=== PATIENT | male | born 1955 | race Caucasian/White ===

== ENCOUNTER 2016-04-24 21:18 | Inpatient (IN) | payer BC ==
[~2016-04-24] VITALS: Ht 180.3 cm; Wt 94.2 kg
--- NOTE | 2016-04-24 23:25 | ED ORDER SUMMARY ---
..... Patient: VIRGIL DAVILA OrderSheet [facility] VisitID: [id number] [place] [address] 61y, M Registration Date/Time: 04/24/2016 ORDER SHEET Weight: 88.4 kg (stated) Allergies: No Known Drug Allergy GENERAL ORDERS: CBC w Diff Urgent (:04/24/2016 Jodi CRAMER) (Ack 21:32 AALIYAHurca ER Tech1) (22:12 HOShaughnessy R.N.) CMP Urgent (:04/24/2016 Jodi CRAMER) (Ack 21:32 AALIYAHurcquyen ER Tech1) (22:12 HOShaughnessy R.N.) UA-Culture if indicated Urgent (:04/24/2016 Jodi CRAMER) (Ack 21:32 Robert ER Tech1) (22:12 HOShaughnessy R.N.) Amylase Urgent (04/24/2016 Jodi CRAMER) (Ack 21:32 AALIYAHurcquyen ER Tech1) (22:12 HOShaughnessy R.N.) Lipase Urgent (:04/24/2016 Jodi CRAMER) (Ack 21:32 Robert ER Tech1) (22:12 HOShaughnessy R.N.) US Abdomen Limited (No) Urgent (22:06 04/24/2016 Jodi CRAMER) (Ack 22:08 IJurca ER Tech1) (23:12 HOShaughnessy R.N.) Blood Culture (No) (N/A) Urgent (22:22 04/24/2016 Jodi CRAMER) (Ack 22:27 IJurca ER Tech1) (Sent 23:11 IJurca ER Tech1) (23:12 HOShaughnessy R.N.) Lactate, Serum Urgent (22:23 04/24/2016 Jodi CRAMER) (Ack 22:27 AALIYAHurcquyen ER Tech1) (Sent 23:11 IJurca ER Tech1) (23:12 HOShaughnessy R.N.) MEDICATION ORDERS: IV FLUIDS: IV NS : initial bolus 500 mL (1000 mL/hr), then 125 mL/hr for 4h (NOW); Urgent (21:31 04/24/2016 Jodi CRAMER) (21:38 HOShaughgino R.N.) (Cancelled: Other22:34 Jodi CRAMER) Zofran IV 4 mg (NOW) (21:31 04/24/2016 Jodi CRAMER) (21:38 HOSvamshi R.N.) Dilaudid IV 0.5 mg (PRN q 15minutes x2 for pain control ) (22:13 04/24/2016 HOSvamshi R.N. verbal order read back to Jodi CRAMER) (22:13 Jim RPaolaN.) IV NS : initial bolus 1000 mL (1000 mL/hr), then 1000 mL/hr for X3 (NOW); Urgent (22:35 04/24/2016 Jodi CRAMER) (23:12 HOShaughgino R.N.) Zosyn IV 3.375 gm/50mL (NOW) (22:36 04/24/2016 Jodi CRAMER) (23:12 HOShaughgino R.N.) Dilaudid IV 0.5 mg (HIGH ALERT MEDICATION, NOW) (23:29 04/24/2016 Jodi CRAMER) (23:41 HOSvamshi R.N.) ORDER SHEET NOTES: [Electronically signed by Estrada Hope R.N. (00:57 04/25/2016)] [Electronically signed by Jadon Carr MD (01:19 04/25/2016)] [Electronically locked/signed by Estrada Hope R.N. (00:57 04/25/2016)]
--- NOTE | 2016-04-24 23:25 | ED NURSING NOTES ---
Clinical Report - Nurses [facility] [place] [address] 04/24/2016 21:20 Patient: VIRGIL DAVILA TRIAGE Triage time 2129 PM. Acuity: LEVEL 3. Chief Complaint: ABDOMINAL PAIN, NAUSEA and VOMITING. Alert. No acute distress. ( Blood Sugar: 169). --21:32 Etsrada Hope R.N. 21:29 04/24/16. BP: 169/98 taken on the left arm, via an automated monitor, while lying. HR: 51. RR: 16. O2 saturation: 93%. Temp: 98.7 F (oral). Pain level now: 12/03. --21:32 Estrada Hope R.N. Weight: 88.4 kg stated. Height/Length: 71 inches Per Patient. BMI: 27.2. --21:31 Estrada Hope R.N. Medications Omeprazole Oral. --21:30 Estrada Hope R.N. Lisinopril Oral. --21:30 Estrada Hope R.N. Allergies No Known Drug Allergy. --21:30 Estrada Hope R.N. History Arrived by private vehicle. Historian: patient. Accompanied by family. This started today. Onset. (about 1 PM). Last oral intake by patient was liquid 1 hour ago. Treatment COMMUNICATIONS ADVISOR: None. PAST MEDICAL HX: Peptic ulcer disease. SOCIAL HX: Never smoker. Alcohol use. (no). History of drug use. (no). FALL RISK ASSESSMENT: Fall risk assessment completed. No fall risk identified. NUTRITIONAL RISK ASSESSMENT: The nutritional risk assessment revealed no deficiencies. FUNCTIONAL ASSESSMENT: Functional assessment: no impairments noted. LEARNING NEEDS ASSESSMENT: The learning needs assessment revealed no barriers. SKIN INTEGRITY ASSESSMENT: Skin integrity risk assessment completed. No skin integrity risk identified. --21:32 Estrada Hope R.N. PROBLEMS: Peptic Ulcer Disease. Hypertension. --21:31 Estrada Hope R.N. ADDITIONAL SURGERIES: Knee Surgery. --21:31 Estrada Hope R.N. Interventions ID band on patient. To treatment room. --21:32 Estrada Hope R.N. PHYSICAL ASSESSMENT Ambulatory to room. GENERAL / NEURO / PSYCH: Alert. Oriented X 4. Appears in no acute distress. HEENT: Mucous membranes are pink. RESPIRATORY: Respirations not labored. Breath sounds within normal limits. CVS: Normal sinus rhythm noted. Capillary refill less than 2 seconds. GI / : The patient has had nausea. Emesis noted. Abdominal tenderness in the epigastric area. Last BM was 12pm. SKIN: Skin is warm and dry. --21:33 Estrada Hope R.N. NURSING PROGRESS NOTES Point of care testing: performed by nurse. Glucose: 169. Result shown to the ED physician. --21:34 Estrada Hope R.N. Reassurance given. Call light placed in reach. Side rails up x 2. --21:34 Estrada Hope R.N. 21:35 04/24/2016 Site #1 started via IV in the right antecubital space with an 20g angiocath, with aseptic technique and good blood return; one attempt. Blood drawn: rainbow set. Labeled in the presence of the patient and sent to the lab. Saline lock flushed with 10 mL saline. --21:35 Genevieve Padron R.N. 21:38 04/24/2016 Started IV Fluids IV NS (Saline); bolus of 500 mL wide open via site #1 via IV pump. Allergies verified and confirmed 5 rights. IV patency established. IV site checked: no pain, redness, or swelling. IV flushed thoroughly pre- and post-medication administration. --21:38 Estrada Hope R.N. 21:38 04/24/2016 Zofran (Ondansetron HCl) IVP 4 mg given over 2 minute(s) via site #1. Allergies verified and confirmed 5 rights. IV patency established. IV site checked: no pain, redness, or swelling. IV flushed thoroughly pre- and post-medication administration. IVP given by RN. --21:38 Estrada Hope R.N. 22:13 04/24/2016 Dilaudid (HYDROmorphone HCl PF) IVP 0.5 mg given over 2 minute(s) via site #1. Allergies verified, confirmed 5 rights and sedative warning given to the patient. IV patency established. IV site checked: no pain, redness, or swelling. IV flushed thoroughly pre- and post-medication administration. IVP given by RN. --22:13 Estrada Hope R.N. 22:36 04/24/2016 Dilaudid IVP Response: pain is improving. Symptoms have improved the patient feels better. --22:36 Estrada Hope R.N. 22:37 04/24/2016 Dilaudid (HYDROmorphone HCl PF) IVP 0.5 mg given over 2 minute(s) via site #1. Allergies verified, confirmed 5 rights and sedative warning given to the patient. IV patency established. IV site checked: no pain, redness, or swelling. IV flushed thoroughly pre- and post-medication administration. IVP given by RN. --22:37 Estrada Hope R.N. 23:11 04/24/2016 Site #2 started via IV in the left forearm with an 18g angiocath; one attempt. Blood drawn: cultures x2. Labeled in the presence of the patient and sent to the lab. Saline lock flushed with 10 mL saline. --23:11 Estrada Hope R.N. 23:11 04/24/2016 Started IV Fluids IV NS (Saline); bolus of 1000 mL wide open via site #2. Allergies verified and confirmed 5 rights. IV patency established. IV site checked: no pain, redness, or swelling. IV flushed thoroughly pre- and post-medication administration. --23:12 Estrada Hope R.N. 23:12 04/24/2016 Started 3.375 gm of Zosyn (Piperacillin Sod-Tazobactam So) IVPB in bag #1 50 mL; at 100 mL/hr over 30 minute(s) via site #2 via IV pump. Allergies verified and confirmed 5 rights. IV patency established. IV site checked: no pain, redness, or swelling. IV flushed thoroughly pre- and post-medication administration. --23:12 Estrada Hope R.N. ( Ultrasound at the bedside.). --23:13 Estrada Hope R.N. 23:40 04/24/2016 Dilaudid (HYDROmorphone HCl PF) IVP 0.5 mg given over 2 minute(s) via site #2. Allergies verified, confirmed 5 rights and sedative warning given to the patient. IV patency established. IV site checked: no pain, redness, or swelling. IV flushed thoroughly pre- and post-medication administration. IVP given by RN. --23:41 Estrada Hope R.N. 23:42 04/24/16. BP: 154/90. HR: 58. RR: 16. O2 saturation: 94%. Temp: 99.4 F (oral). Pain level now: 08/03. --23:43 Estrada Hope R.N. late entry -23:42. Call light placed in reach. --23:43 Estrada Hope R.N. 00:33 04/25/2016 Dilaudid IVP Response: symptoms are the same. The patient feels the same. --00:33 Estrada Hope R.N. 00:34 04/25/2016 Started bag #1 1000 mL IV Fluids IV NS (Saline); bolus of 1000 mL wide open via site #2. Allergies verified and confirmed 5 rights. IV patency established. IV site checked: no pain, redness, or swelling. IV flushed thoroughly pre- and post-medication administration. --00:34 Estrada Hope R.N. 00:34 04/25/2016 Zosyn IVPB Discontinued: bag #1 infused. Total amount infused: 50 mL. IV patency established. IV site checked: no pain, redness, or swelling. IV flushed thoroughly. --00:34 Estrada Hope R.N. 00:34 04/25/2016 IV Fluids IV NS Discontinued: bag #2 infused. Total amount infused: 1000 mL. IV patency established. IV site checked: no pain, redness, or swelling. IV flushed thoroughly. --00:34 Estrada Hope R.N. 00:35 04/25/2016 IV Fluids IV NS Discontinued: bag #3 infused. Total amount infused: 1000 mL. IV patency established. IV site checked: no pain, redness, or swelling. IV flushed thoroughly. --00:35 Estrada Hope R.N. DISPOSITION / DISCHARGE The goals identified in the patient's plan of care were met. Report was given to a nurse via a phone call. Report included patient's care, treatment, medications, reviewed medication reconcilliation, and condition (including any recent changes or anticipated changes). All questions were answered. Report was acknowledged and care was transferred. --00:33 Estrada Hope R.N. 00:32 04/25/16. BP: 156/84. HR: 54. RR: 16. O2 saturation: 90%. Temp: 99.5 F. Pain level now: 08/03. --00:33 Estrada Hope R.N. Departure time: 0045 AM. --00:57 Estrada Hope R.N. Transported via stretcher by nurse with IV. --00:57 Estrada Hope R.N. Locked/Released at 04/25/2016 0:57 by Estrada Hope R.N.
--- NOTE | 2016-04-24 23:25 | ED CLINICAL REPORT ---
Clinical Report - Physicians/Mid Levels [facility] [address] [place] [address] 04/24/2016 21:20 Patient: VIRGIL DAVILA Time Seen: 21:29. Arrived- By private vehicle. Historian- patient. HISTORY OF PRESENT ILLNESS Chief Complaint: ABDOMINAL PAIN. It is described as sharp and stabbing and it is described as located in the epigastric area and in the upper abdomen and radiating to the upper back. At its maximum, severity described as severe. When seen in the E.D., severity described as severe. Modifying factors- worsened by cough, deep breaths and food. Relieved by antacids. This started today and is still present. It was abrupt in onset and has been constant. The patient has had nausea and loss of appetite. He has had vomiting. The vomiting has occurred numerous times. No blood-tinged emesis, coffee-grounds emesis or frankly bloody emesis. No diarrhea. The patient has had recent travel- ([place]). Similar symptoms previously: Many times. REVIEW OF SYSTEMS The patient has had a subjective fever, chills and constipation and experienced sweats. No calf pain, chest pain, cough, difficulty breathing or pedal edema. No palpitations, black stools, bloody stools or urinary problems. All systems otherwise negative, except as recorded above. PAST HISTORY PCP - Oneil Llanos - [facility] [place]. Problems: Peptic Ulcer Disease. Hypertension. Additional Surgeries: Knee Surgery. Medications: Lisinopril Oral. Omeprazole Oral. Allergies: No Known Drug Allergy. SOCIAL HISTORY Former smoker, end date 1996. Occasional alcohol use. He lives with spouse. Has good social support. FAMILY HISTORY Heart disease in first-degree relative (mother); aortic aneurysm in first-degree relative (father). ADDITIONAL NOTES The nursing notes have been reviewed. PHYSICAL EXAM Vital Signs: 04/24/2016 21:29 BP: 169/98. HR: 51. RR: 16. O2 saturation: 93%. Temp: 98.7 F. Pain level now: 12/03. Have been reviewed. Appearance: Alert. Appears to be in pain. Eyes: Pupils equal, round and reactive to light. ENT: Pharynx normal. Neck: Normal inspection. Neck supple. CVS: Normal heart rate and rhythm. Heart sounds normal. Respiratory: No respiratory distress. Breath sounds normal. Abdomen: Soft. Moderate tenderness in the upper abdomen. Bowel sounds normal. No organomegaly. No mass. Back: Normal inspection. No CVA tenderness. Skin: Skin warm and dry. Normal skin color. Normal skin turgor. Extremities: Extremities exhibit normal ROM. No calf tenderness. No lower extremity edema. LABS, X-RAYS, AND EKG Abdominal Sonogram: Multiple gallstones are present. Moderate gallbladder wall thickening is present (6 mm with hyperemia). Pericholecystic fluid is present. The common duct is dilated (7mm). No common duct stones. The study was independently viewed by me. Laboratory Tests: UA-Culture if indicated: (GOMEZ: 04/24/2016 22:10) ( [facility] [place] 04/24/2016 22:28) Final results Test Result Flag Units (Reference) URINE COLOR YELLOW URINE APPEARANCE CLEAR URINE GLUCOSE NEGATIVE (NEGATIVE) URINE BILIRUBIN NEGATIVE (NEGATIVE) URINE KETONE NEGATIVE (NEGATIVE) URINE SPECIFIC GRAVITY 1.025 (1.010-1.030) URINE PH 5.5 (5.0-8.0) URINE PROTEIN NEGATIVE (NEGATIVE) URINE UROBILINOGEN 0.2 EU/dL (0.2-1.0) URINE NITRITE NEGATIVE (NEGATIVE) URINE BLOOD NEGATIVE (NEGATIVE) URINE LEUK ESTERASE NEGATIVE (NEGATIVE) URINE RBC 0-1 rbc/hpf (0-1) URINE WBC NONE SEEN wbc/hpf (0-1) URINE EPITHELIAL CELLS NONE SEEN EPI/hpf (0-5) URINE BACTERIA NONE SEEN (NONE SEEN) URINE COMMENT CULT NOT INDICATED 1+ MUCUSURINE CULTURES ARE SET-UP BASED ON THE FOLLOWING CRITERIA:POSITIVE NITRITEPOSITIVE LEUKOCYTE ESTERASEGREATER THAN 10 WHITE BLOOD CELLSMODERATE (2+) OR GREATER BACTERIA CBC w Diff: (GOMEZ: 04/24/2016 21:33) ( [facility] 04/24/2016 21:42) Final results Test Result Flag Units (Reference) WHITE BLOOD COUNT 17.6 H K/uL (4.5-11.5) RED BLOOD COUNT 5.11 M/uL (4.50-5.90) HEMOGLOBIN 15.2 gm/dL (13.5-17.5) HEMATOCRIT 45.8 % (41.0-53.0) MEAN CELL VOLUME 90 fL (80-100) MEAN CORPUSCULAR HGB 30 pg (26-34) MEAN CORPUSCULAR HGB CONC 33 g/dL (31-37) RED CELL DISTRIBUTION WIDTH 13.3 % (11.6-14.8) PLATELET COUNT 183 K/uL (150-400) NEUTROPHIL % 92.6 H % (50-75) LYMPH % 4.5 L % (25-40) MONO % 2.9 L % (3-14) EOSINOPHIL % 0 % (0-4) BASOPHIL % 0 % (0-2) Lactate, Serum: (GOMEZ: 04/24/2016 10:46) ( [facility] 04/24/2016 23:14) Final results Test Result Flag Units (Reference) LACTIC ACID 1.2 mmol/L (0.4-2.0) CMP: (GOMEZ: 04/24/2016 21:33) ( [facility] 04/24/2016 22:12) Final results Test Result Flag Units (Reference) GLUCOSE 171 H mg/dL (70-110) BUN 22 H mg/dL (7-18) CREATININE 1.5 H mg/dL (0.6-1.3) Estimated GFR 50.24 mL/min Estimated GFR- >60 mL/min Note: Persistent reduction over 3 months in eGFR<60 mL/min/1.73 m2 defines CKD. Patients with eGFR values>=60 mL/min/1.73 m2 may also have CKD if evidence ofpersistent proteinuria. Additional information may be foundat www.kidney.org. SODIUM 136 mmol/L (136-145) POTASSIUM 3.6 mmol/L (3.5-5.1) CHLORIDE 99 mmol/L (98-107) CARBON DIOXIDE 28 mmol/L (21-32) CALCIUM 9.1 mg/dL (8.5-10.1) TOTAL PROTEIN 7.7 g/dL (6.4-8.2) ALBUMIN 4.3 g/dL (3.3-5.0) BILIRUBIN, TOTAL 1.6 H mg/dL (0.0-1.0) ALKALINE PHOSPHATASE 344 H U/L (46-116) AST (SGOT) 156 H U/L (15-37) ALT (SGPT) 499 H U/L (12-78) LIPASE 79182 H U/L (73-393) AMYLASE 1777 H U/L (25-115) . PROGRESS AND PROCEDURES Course of Care: Patient is stable. Discussed case with hospitalist, (León gonzalez saw the patient in the ER). Reviewed test results and need for additional work-up. Agreed upon treatment plan, need for patient follow-up and decision to admit. Consult obtained from surgery. Josey. Case discussed. Phone consult only. Patient/family counseled. Old medical records ordered. Disposition: Admitted to the Critical Care Unit. CLINICAL IMPRESSION Cholecystitis. Acute biliary pancreatitis. (Electronically signed by Jadon Carr MD 04/25/2016 1:19)
--- NOTE | 2016-04-24 23:25 | ED ORDER SUMMARY ---
..... Patient: VIRGIL DAVILA OrderSheet [facility] VisitID: [id number] [place] [address] 61y, M Registration Date/Time: 04/24/2016 ORDER SHEET Weight: 88.4 kg (stated) Allergies: No Known Drug Allergy GENERAL ORDERS: CBC w Diff Urgent (:04/24/2016 Jodi CRAMER) (Ack 21:32 AALIYAHurca ER Tech1) (22:12 HOShaughnessy R.N.) CMP Urgent (:04/24/2016 Jodi CRAMER) (Ack 21:32 AALIYAHurcquyen ER Tech1) (22:12 HOShaughnessy R.N.) UA-Culture if indicated Urgent (:04/24/2016 Jodi CRAMER) (Ack 21:32 Robert ER Tech1) (22:12 HOShaughnessy R.N.) Amylase Urgent (04/24/2016 Jodi CRAMER) (Ack 21:32 AALIYAHurcquyen ER Tech1) (22:12 HOShaughnessy R.N.) Lipase Urgent (:04/24/2016 Jodi CRAMER) (Ack 21:32 Robert ER Tech1) (22:12 HOShaughnessy R.N.) US Abdomen Limited (No) Urgent (22:06 04/24/2016 Jodi CRAMER) (Ack 22:08 IJurca ER Tech1) (23:12 HOShaughnessy R.N.) Blood Culture (No) (N/A) Urgent (22:22 04/24/2016 Jodi CRAMER) (Ack 22:27 IJurca ER Tech1) (Sent 23:11 IJurca ER Tech1) (23:12 HOShaughnessy R.N.) Lactate, Serum Urgent (22:23 04/24/2016 Jodi CRAMER) (Ack 22:27 AALIYAHurcquyen ER Tech1) (Sent 23:11 IJurca ER Tech1) (23:12 HOShaughnessy R.N.) MEDICATION ORDERS: IV FLUIDS: IV NS : initial bolus 500 mL (1000 mL/hr), then 125 mL/hr for 4h (NOW); Urgent (21:31 04/24/2016 Jodi CRAMER) (21:38 HOShaughgino R.N.) (Cancelled: Other22:34 Jodi CRAMER) Zofran IV 4 mg (NOW) (21:31 04/24/2016 Jodi CRAMER) (21:38 HOSvamshi R.N.) Dilaudid IV 0.5 mg (PRN q 15minutes x2 for pain control ) (22:13 04/24/2016 HOSvamshi R.N. verbal order read back to Jodi CRAMER) (22:13 Jim RPaolaN.) IV NS : initial bolus 1000 mL (1000 mL/hr), then 1000 mL/hr for X3 (NOW); Urgent (22:35 04/24/2016 Jodi CRAMER) (23:12 HOShaughgino R.N.) Zosyn IV 3.375 gm/50mL (NOW) (22:36 04/24/2016 Jodi CRAMER) (23:12 HOShaughgino R.N.) Dilaudid IV 0.5 mg (HIGH ALERT MEDICATION, NOW) (23:29 04/24/2016 Jodi CRAMER) (23:41 HOSvamshi R.N.) ORDER SHEET NOTES: [Electronically signed by Estrada Hope R.N. (00:57 04/25/2016)] [Electronically signed by Jadon Carr MD (01:19 04/25/2016)] [Electronically locked/signed by Estrada Hope R.N. (00:57 04/25/2016)]
--- NOTE | 2016-04-24 23:25 | ED CLINICAL REPORT ---
Clinical Report - Physicians/Mid Levels [facility] [address] [place] [place] [address] 04/24/2016 21:20 Patient: VIRGIL DAVILA Time Seen: 21:29. Arrived- By private vehicle. Historian- patient. HISTORY OF PRESENT ILLNESS Chief Complaint: ABDOMINAL PAIN. It is described as sharp and stabbing and it is described as located in the epigastric area and in the upper abdomen and radiating to the upper back. At its maximum, severity described as severe. When seen in the E.D., severity described as severe. Modifying factors- worsened by cough, deep breaths and food. Relieved by antacids. This started today and is still present. It was abrupt in onset and has been constant. The patient has had nausea and loss of appetite. He has had vomiting. The vomiting has occurred numerous times. No blood-tinged emesis, coffee-grounds emesis or frankly bloody emesis. No diarrhea. The patient has had recent travel- ([place]). Similar symptoms previously: Many times. REVIEW OF SYSTEMS The patient has had a subjective fever, chills and constipation and experienced sweats. No calf pain, chest pain, cough, difficulty breathing or pedal edema. No palpitations, black stools, bloody stools or urinary problems. All systems otherwise negative, except as recorded above. PAST HISTORY [place] [facility] [place] Problems: Peptic Ulcer Disease. Hypertension. Additional Surgeries: Knee Surgery. Medications: Lisinopril Oral. Omeprazole Oral. Allergies: No Known Drug Allergy. SOCIAL HISTORY Former smoker, end date 1996. Occasional alcohol use. He lives with spouse. Has good social support. FAMILY HISTORY Heart disease in first-degree relative (mother); aortic aneurysm in first-degree relative (father). ADDITIONAL NOTES The nursing notes have been reviewed. PHYSICAL EXAM Vital Signs: 04/24/2016 21:29 BP: 169/98. HR: 51. RR: 16. O2 saturation: 93%. Temp: 98.7 F. Pain level now: 12/03. Have been reviewed. Appearance: Alert. Appears to be in pain. Eyes: Pupils equal, round and reactive to light. ENT: Pharynx normal. Neck: Normal inspection. Neck supple. CVS: Normal heart rate and rhythm. Heart sounds normal. Respiratory: No respiratory distress. Breath sounds normal. Abdomen: Soft. Moderate tenderness in the upper abdomen. Bowel sounds normal. No organomegaly. No mass. Back: Normal inspection. No CVA tenderness. Skin: Skin warm and dry. Normal skin color. Normal skin turgor. Extremities: Extremities exhibit normal ROM. No calf tenderness. No lower extremity edema. LABS, X-RAYS, AND EKG Abdominal Sonogram: Multiple gallstones are present. Moderate gallbladder wall thickening is present (6 mm with hyperemia). Pericholecystic fluid is present. The common duct is dilated (7mm). No common duct stones. The study was independently viewed by me. Laboratory Tests: UA-Culture if indicated: (GOMEZ: 04/24/2016 22:10) ( [facility] [place] 04/[place] 22:28) Final results Test Result Flag Units (Reference) URINE COLOR YELLOW URINE APPEARANCE CLEAR URINE GLUCOSE NEGATIVE (NEGATIVE) URINE BILIRUBIN NEGATIVE (NEGATIVE) URINE KETONE NEGATIVE (NEGATIVE) URINE SPECIFIC GRAVITY 1.025 (1.010-1.030) URINE PH 5.5 (5.0-8.0) URINE PROTEIN NEGATIVE (NEGATIVE) URINE UROBILINOGEN 0.2 EU/dL (0.2-1.0) URINE NITRITE NEGATIVE (NEGATIVE) URINE BLOOD NEGATIVE (NEGATIVE) URINE LEUK ESTERASE NEGATIVE (NEGATIVE) URINE RBC 0-1 rbc/hpf (0-1) URINE WBC NONE SEEN wbc/hpf (0-1) URINE EPITHELIAL CELLS NONE SEEN EPI/hpf (0-5) URINE BACTERIA NONE SEEN (NONE SEEN) URINE COMMENT CULT NOT INDICATED 1+ MUCUSURINE CULTURES ARE SET-UP BASED ON THE FOLLOWING CRITERIA:POSITIVE NITRITEPOSITIVE LEUKOCYTE ESTERASEGREATER THAN 10 WHITE BLOOD CELLSMODERATE (2+) OR GREATER BACTERIA CBC w Diff: (GOMEZ: 04/24/2016 21:33) ( [facility] 04/24/2016 21:42) Final results Test Result Flag Units (Reference) WHITE BLOOD COUNT 17.6 H K/uL (4.5-11.5) RED BLOOD COUNT 5.11 M/uL (4.50-5.90) HEMOGLOBIN 15.2 gm/dL (13.5-17.5) HEMATOCRIT 45.8 % (41.0-53.0) MEAN CELL VOLUME 90 fL (80-100) MEAN CORPUSCULAR HGB 30 pg (26-34) MEAN CORPUSCULAR HGB CONC 33 g/dL (31-37) RED CELL DISTRIBUTION WIDTH 13.3 % (11.6-14.8) PLATELET COUNT 183 K/uL (150-400) NEUTROPHIL % 92.6 H % (50-75) LYMPH % 4.5 L % (25-40) MONO % 2.9 L % (3-14) EOSINOPHIL % 0 % (0-4) BASOPHIL % 0 % (0-2) Lactate, Serum: (GOMEZ: 04/24/2016 10:46) ( [facility] 04/24/2016 23:14) Final results Test Result Flag Units (Reference) LACTIC ACID 1.2 mmol/L (0.4-2.0) CMP: (GOMEZ: 04/24/2016 21:33) ( [facility] 04/24/2016 22:12) Final results Test Result Flag Units (Reference) GLUCOSE 171 H mg/dL (70-110) BUN 22 H mg/dL (7-18) CREATININE 1.5 H mg/dL (0.6-1.3) Estimated GFR 50.24 mL/min Estimated GFR- >60 mL/min Note: Persistent reduction over 3 months in eGFR<60 mL/min/1.73 m2 defines CKD. Patients with eGFR values>=60 mL/min/1.73 m2 may also have CKD if evidence ofpersistent proteinuria. Additional information may be foundat www.kidney.org. SODIUM 136 mmol/L (136-145) POTASSIUM 3.6 mmol/L (3.5-5.1) CHLORIDE 99 mmol/L (98-107) CARBON DIOXIDE 28 mmol/L (21-32) CALCIUM 9.1 mg/dL (8.5-10.1) TOTAL PROTEIN 7.7 g/dL (6.4-8.2) ALBUMIN 4.3 g/dL (3.3-5.0) BILIRUBIN, TOTAL 1.6 H mg/dL (0.0-1.0) ALKALINE PHOSPHATASE 344 H U/L (46-116) AST (SGOT) 156 H U/L (15-37) ALT (SGPT) 499 H U/L (12-78) LIPASE 90102 H U/L (73-393) AMYLASE 1777 H U/L (25-115) . PROGRESS AND PROCEDURES Course of Care: Patient is stable. Discussed case with hospitalist, (León gonzalez saw the patient in the ER). Reviewed test results and need for additional work-up. Agreed upon treatment plan, need for patient follow-up and decision to admit. Consult obtained from surgery. Josey. Case discussed. Phone consult only. Patient/family counseled. Old medical records ordered. Disposition: Admitted to the Critical Care Unit. CLINICAL IMPRESSION Cholecystitis. Acute biliary pancreatitis. (Electronically signed by Jadon Carr MD 04/25/2016 1:19)
--- NOTE | 2016-04-24 23:36 | DIAGNOSTIC IMAGING REPORT ---
PROCEDURE: US ABDOMEN ULTRASOUND-LIMITED INDICATION: PAIN TECHNIQUE: Smith scale and color Doppler sonographic images were obtained of the right upper quadrant. COMPARISON: None. FINDINGS: The liver is normal in size, contour, and echotexture. No mass or biliary dilatation. The common duct is 7 mm. The gallbladder demonstrates a thickened, hyperemic wall with wall edema and pericholecystic fluid present. The wall measures between five and 6 mm. There are multiple gallstones present dependently, approximately 1 cm in size. Hilario's sign was unable to be obtained because the patient had been previously medicated. The visible portion of the inferior vena cava, abdominal aorta, and portal vein appear normal with appropriate direction of flow in the portal vein. The right kidney is normal measuring 11 cm. Nonvisualization of the pancreas. No free fluid in the right upper quadrant. IMPRESSION: 1. Cholelithiasis and findings suggestive of acute cholecystitis.
[2016-04-25] VITALS (7 sets, daily range): BP systolic 117–163; BP diastolic 61–84
--- NOTE | 2016-04-25 00:13 | History & Physical Report ---
History Chief Complaint abdominal pain History of Present Illness Patient is a 61 year old male that is presenting with a 4 month history of vague abdominal pain and a one day history of severe abdominal pain. Patient claims that for the past four months he has been having vague abodminal discomfort. Patient claims that the pain was located primarily in the epigastric region and was present regardless of diet, activity, or stress level. Patient describes the pain as gnawing deep pain. Patient went to his pmd who recommended that the patient start omeprazole. Patient started the omeprazole and had some releif however not complete relief. Patient continued to have the pain occasionally over the next few months. Patient claims that takes high doses of calcium carbonate can diminish it, however last night it became unbearalbe and the patient had to come to the hospital. Patient describes the pain as intense boring pain deep in his abdomen. Patient claims the pain came on without any warning and was not associated with food, acivity, or medication. Patient is otherwise hemodynamically stable. Patient History 1. Pancreatitis 2. Cholelithiasis 3. 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 He lives alone at home with his . He does not smoke , he drinks very rarely, and does not use illicit drugs. Family History Family history was reviewed; no changes noted. Medications and Allergies Medications Home Medications Omeprazole 40 mg daily Lisinopril 10 mg daily Current Medications Sig/Abraham Start time Last Medication Dose Route Stop Time Status Admin Pantoprazole Sodium 40 MG BID 04/25 0900 AC IV Insulin Human Lispro See Dose Q6HR 04/25 0130 AC 04/25 Insts (1) SC 0130 Hydromorphone HCl See Dose Q4H PRN 04/25 0115 AC 04/25 Insts (2) IV 0207 Hydromorphone HCl See Dose Q4H PRN 04/25 0115 AC Insts (3) IV Acetaminophen 650 MG Q6H PRN 04/25 0015 AC PO Morphine Sulfate 1 MG Q3H PRN 04/25 0015 AC 04/25 IV 0054 Ondansetron HCl 4 MG Q6H PRN 04/25 0015 AC IV Sodium Chloride 1,000 ML ASDIRECTED 04/25 0015 AC 04/25 IV 0629 Dose Instructions: (1)Insulin Human Lispro: LOW DOSE: ACCUCHECK AND SLIDING SCALE >>To change sliding scale DISCONTINUE this order and enter a NEW order. Thanks< (2)Hydromorphone HCl: 0.5 - 1 MG (3)Hydromorphone HCl: 0.5-1MG Allergies Coded Allergies: NKA (04/25/16) Review of Systems Constitutional Sweats, Malaise. Denies: Fever, Chills, Weakness, Other. Eyes Denies: Pain, Vision Change, Conjunctival Inflammation, Eyelid Inflammation, Redness, Other. ENT Denies: Ear Pain, Ear Discharge, Nose Pain, Nasal Discharge, Nasal Congestion, Mouth Pain, Mouth Swelling, Throat Pain, Throat Swelling, Other. Respiratory Denies: Cough, Dry, SOB w/exertion, Wheezing, Hemoptysis, Pleuritic Pain, Sputum , Other. Cardiovascular Denies: Chest Pain, Palpitations, Orthopnea, PND, Edema, Light-headedness, Other. Gastrointestinal Nausea, Abdominal Pain. Denies: Vomiting, Diarrhea, Constipation, Melena, Hematochezia. Genitourinary Denies: Dysuria, Frequency, Incontinence, Hematuria, Retention, Other. Musculoskeletal Denies: Neck Pain, Shoulder Pain, Arm Pain, Back Pain, Hand Pain, Leg Pain, Foot Pain, Other. Skin Denies: Rash, Lesions, Jaundice, Bruising, Other. Neurological Denies: Weakness, Numbness, Incoordination, Change in speech, Confusion, Seizures, Other. Physical Exam Vital Signs / I&Os Vital Signs Date Time Temp Pulse Resp B/P Pulse O2 O2 Flow FiO2 Ox Delivery Rate 04/25 0619 98.1 61 18 150/80 100 Nasal 2.0 Cannula 04/25 0215 98.6 64 16 136/80 96 Nasal 2.0 Cannula 04/25 0059 98.6 64 16 163/84 98 Room Air 0.0 04/25 0047 Room Air General Appearance Alert, Oriented X3, No acute distress HEENT Moist mucous membranes Lungs Clear to auscultation, Normal air movement Neck Supple, No JVD, No masses, No thyromegaly, No lymphadenopathy, 2+ carotid pulse wo bruit Cardiovascular Regular rate and rhythm, Normal S1 and S2, No murmurs, gallops, rubs Abdomen Normal bowel sounds, Soft, - guarding present - epigastric pain on palpation - negative murphys sign Extremities No cyanosis, No clubbing, No edema, Normal pulses, Strength = upper ext's, Strength = lower ext's Skin No Breakdown, No Significant Lesions Neurological Normal tone, Sensation intact, Cranial nerves intact, Strength 5/5 x4 ext's Psych/Mental Status Mental status normal, Mood normal, Confused LAB Results Laboratory Tests 04/24 04/24 04/24 1046 2133 2210 Chemistry Plasma Sodium (136 - 145 mmol/L) 136 Plasma Potassium (3.5 - 5.1 mmol/L) 3.6 Plasma Chloride (98 - 107 mmol/L) 99 CO2 (Enzymatic) (21 - 32 mmol/L) 28 BUN (7 - 18 mg/dL) 22 Creatinine (0.6 - 1.3 mg/dL) 1.5 Est GFR ( Amer) (mL/min) >60 Est GFR (Non-Af Amer) (mL/min) 50.24 Glucose (70 - 110 mg/dL) 171 Lactic Acid (0.4 - 2.0 mmol/L) 1.2 Plasma Calcium (8.5 - 10.1 mg/dL) 9.1 Total Bilirubin (0.0 - 1.0 mg/dL) 1.6 AST (15 - 37 U/L) 156 ALT (12 - 78 U/L) 499 Alkaline Phosphatase (46 - 116 U/L) 344 Total Protein (6.4 - 8.2 g/dL) 7.7 Albumin (3.3 - 5.0 g/dL) 4.3 Amylase (25 - 115 U/L) 1777 Lipase (73 - 393 U/L) 68139 Hematology WBC (4.5 - 11.5 K/uL) 17.6 RBC (4.50 - 5.90 M/uL) 5.11 Hgb (13.5 - 17.5 gm/dL) 15.2 Hct (41.0 - 53.0 %) 45.8 MCV (80 - 100 fL) 90 MCH (26 - 34 pg) 30 RDW (11.6 - 14.8 %) 13.3 Neut % (Auto) (50 - 75 %) 92.6 Lymph % (Auto) (25 - 40 %) 4.5 [place] % (Auto) (3 - 14 %) 2.9 Eos % (Auto) (0 - 4 %) 0 Baso % (Auto) (0 - 2 %) 0 Plt Count, EDTA (150 - 400 K/uL) 183 PUBS MCHC (31 - 37 g/dL) 33 Urines Urine Color YELLOW Urine Appearance CLEAR Urine pH (5.0 - 8.0) 5.5 Ur Specific [place] (1.010 - 1.030) 1.025 Urine Protein (NEGATIVE) NEGATIVE Urine Ketones (NEGATIVE) NEGATIVE Urine Blood (NEGATIVE) NEGATIVE Urine Nitrite (NEGATIVE) NEGATIVE Urine Bilirubin (NEGATIVE) NEGATIVE Urine Urobilinogen (0.2 - 1.0 EU/dL) 0.2 Ur Leukocyte Esterase (NEGATIVE) NEGATIVE Urine RBC (0 - 1 rbc/hpf) 0-1 Urine WBC (0 - 1 wbc/hpf) NONE SEEN Ur Epithelial Cells (0 - 5 EPI/hpf) NONE SEEN Urine Bacteria (NONE SEEN) NONE SEEN Urine Glucose (NEGATIVE) NEGATIVE Urine Comment CULT NOT INDICATED Microbiology Date/Time Procedure - Status Source Growth 04/25 0112 MRSA Screen - RECD NASAL 04/24 1046 Blood Culture - RECD BLOOD 04/24 1046 Blood Culture - RECD BLOOD Assessment and Plan Problem List 1. Pancreatitis Plan - Pt has radiological evidence of pancreatitis with elevated lipase and amylase - will keep patient npo for now, will actively hydrate with NS 20 ml.hr - will check daily cmps and lipase - will continue to monitor for improvement 2. Cholelithiasis Plan - given patients findings and lab values of elevated bili, it is likely patient has/had a common duct stone - will keep pt npo - will obtain US in the am - will have surgery consult for possible cholecystecomy 3. Hypertension Plan - will continue with home dose of lisinopril - pt has been normotensive
[2016-04-25] MEDS ORDERED: ZESTRIL2.5 MG PO (00:56)
[2016-04-25] MEDS ORDERED: OMEPRAZOLE10 MG PO (00:57)
--- NOTE | 2016-04-25 01:20 | ED MAR SUMMARY ---
..... Medication Administration Record [facility] [address] [place] [address] Patient: VIRGIL DAVILA Visit ID: [id number] 61y, M Weight: 88.4 kg Height/Length: 71 in BMI: 27.2 ALLERGIES: No Known Drug Allergy Start 21:38 04/24/2016 Estrada Hope R.N. Medication Administered: IV NS (SALINE), Dose: IV Fluids, Bolus: 500 mL wide open, Site: #1 right AC. Medication Ordered: IV NS : initial bolus 500 mL (1000 mL/hr), then 125 mL/hr for 4h (NOW); Urgent. Given 21:38 04/24/2016 Estrada Hope R.N. Medication Administered: ZOFRAN [IVP] (ONDANSETRON HCL), Dose: 4 mg IVP over 2 minute(s), Site: #1 right AC. Medication Ordered: Zofran IV 4 mg (NOW). Given 22:13 04/24/2016 Estrada Hope R.N. Medication Administered: DILAUDID [IVP] (HYDROMORPHONE HCL PF), Dose: 0.5 mg IVP over 2 minute(s), Site: #1 right AC. Medication Ordered: Dilaudid IV 0.5 mg (PRN q 15minutes x2 for pain control ). Given 22:37 04/24/2016 Estrada Hope R.N. Medication Administered: DILAUDID [IVP] (HYDROMORPHONE HCL PF), Dose: 0.5 mg IVP over 2 minute(s), Site: #1 right AC. Medication Ordered: Dilaudid IV 0.5 mg (PRN q 15minutes x2 for pain control ). Start 23:11 04/24/2016 Estrada Hope R.N., Stop 00:34 04/25/2016 Estrada Hope R.N. Medication Administered: IV NS (SALINE), Dose: IV Fluids, Bolus: 1000 mL wide open, Site: #2 left forearm. Medication Ordered: IV NS : initial bolus 1000 mL (1000 mL/hr), then 1000 mL/hr for X3 (NOW); Urgent. Start 23:12 04/24/2016 Estrada Hope R.N., Stop 00:34 04/25/2016 Estrada Hope R.N. Medication Administered: ZOSYN [IVPB] (PIPERACILLIN SOD-TAZOBACTAM SO), Dose: 3.375 gm IVPB over 30 minute(s), Rate: 100 mL/hr, Dispensed: 50 mL bag, Site: #2 left forearm. Medication Ordered: Zosyn IV 3.375 gm/50mL (NOW). Given 23:40 04/24/2016 Estrada Hope R.N. Medication Administered: DILAUDID [IVP] (HYDROMORPHONE HCL PF), Dose: 0.5 mg IVP over 2 minute(s), Site: #2 left forearm. Medication Ordered: Dilaudid IV 0.5 mg (HIGH ALERT MEDICATION, NOW). Start 00:34 04/25/2016 Estrada Hope R.N., Stop 00:35 04/25/2016 Estrada Hope R.N. Medication Administered: IV NS (SALINE), Dose: IV Fluids, Bolus: 1000 mL wide open, Dispensed: 1000 mL bag, Site: #2 left forearm. Medication Ordered: IV NS : initial bolus 1000 mL (1000 mL/hr), then 1000 mL/hr for X3 (NOW); Urgent.
--- NOTE | 2016-04-25 01:20 | ED DISCHARGE INSTRUCTIONS ---
Patient: VIRGIL DAVILA General Instructions [facility] VisitID: [id number] [address] [place] [address] 61y, M Registration Date/Time: 04/24/2016 Cholecystitis. Acute biliary pancreatitis. (Electronically signed by Jadon Carr MD 04/25/2016 1:19)
--- NOTE | 2016-04-25 01:20 | ED MAR SUMMARY ---
..... Medication Administration Record [address] [place] [address] Patient: VIRGIL DAVILA Visit ID: [id number] 61y, M Weight: 88.4 kg Height/Length: 71 in BMI: 27.2 ALLERGIES: No Known Drug Allergy Start 21:38 04/24/2016 Estrada Hope R.N. Medication Administered: IV NS (SALINE), Dose: IV Fluids, Bolus: 500 mL wide open, Site: #1 right AC. Medication Ordered: IV NS : initial bolus 500 mL (1000 mL/hr), then 125 mL/hr for 4h (NOW); Urgent. Given 21:38 04/24/2016 Estrada Hope R.N. Medication Administered: ZOFRAN [IVP] (ONDANSETRON HCL), Dose: 4 mg IVP over 2 minute(s), Site: #1 right AC. Medication Ordered: Zofran IV 4 mg (NOW). Given 22:13 04/24/2016 Estrada Hope R.N. Medication Administered: DILAUDID [IVP] (HYDROMORPHONE HCL PF), Dose: 0.5 mg IVP over 2 minute(s), Site: #1 right AC. Medication Ordered: Dilaudid IV 0.5 mg (PRN q 15minutes x2 for pain control ). Given 22:37 04/24/2016 Estrada Hope R.N. Medication Administered: DILAUDID [IVP] (HYDROMORPHONE HCL PF), Dose: 0.5 mg IVP over 2 minute(s), Site: #1 right AC. Medication Ordered: Dilaudid IV 0.5 mg (PRN q 15minutes x2 for pain control ). Start 23:11 04/24/2016 Estrada Hope R.N., Stop 00:34 04/25/2016 Estrada Hope R.N. Medication Administered: IV NS (SALINE), Dose: IV Fluids, Bolus: 1000 mL wide open, Site: #2 left forearm. Medication Ordered: IV NS : initial bolus 1000 mL (1000 mL/hr), then 1000 mL/hr for X3 (NOW); Urgent. Start 23:12 04/24/2016 Estrada Hope R.N., Stop 00:34 04/25/2016 Estrada Hope R.N. Medication Administered: ZOSYN [IVPB] (PIPERACILLIN SOD-TAZOBACTAM SO), Dose: 3.375 gm IVPB over 30 minute(s), Rate: 100 mL/hr, Dispensed: 50 mL bag, Site: #2 left forearm. Medication Ordered: Zosyn IV 3.375 gm/50mL (NOW). Given 23:40 04/24/2016 Estrada Hope R.N. Medication Administered: DILAUDID [IVP] (HYDROMORPHONE HCL PF), Dose: 0.5 mg IVP over 2 minute(s), Site: #2 left forearm. Medication Ordered: Dilaudid IV 0.5 mg (HIGH ALERT MEDICATION, NOW). Start 00:34 04/25/2016 Estrada Hope R.N., Stop 00:35 04/25/2016 Estrada Hope R.N. Medication Administered: IV NS (SALINE), Dose: IV Fluids, Bolus: 1000 mL wide open, Dispensed: 1000 mL bag, Site: #2 left forearm. Medication Ordered: IV NS : initial bolus 1000 mL (1000 mL/hr), then 1000 mL/hr for X3 (NOW); Urgent.
--- NOTE | 2016-04-25 01:20 | ED MED RECONCILIATION SUMMARY ---
Patient: VIRGIL DAVILA Medication Reconciliation Report [facility] VisitID: [id number] [address] [place] [address] 61y, M Registration Date/Time: 04/24/2016 Weight: 88.4 kg Height/Length: 71 in. BMI: 27.2 ALLERGIES: No Known Drug Allergy The patient's Home Medications are listed below: THE FOLLOWING MEDICATIONS NEED TO BE RECONCILED: Lisinopril Oral Omeprazole Oral The source(s) of the original Home Medication information: Not obtained. The following Medications were given to the patient in the Emergency Department: IV NS IV Fluids bolus 500 mL wide open, administered: 04/24/2016 9:38:00 PM Zofran [IVP] IVP 4 mg, administered: 04/24/2016 9:38:00 PM Dilaudid [IVP] IVP 0.5 mg, administered: 04/24/2016 10:13:00 PM Dilaudid [IVP] IVP 0.5 mg, administered: 04/24/2016 10:37:00 PM IV NS IV Fluids bolus 1000 mL wide open, administered: 04/24/2016 11:11:00 PM Zosyn [IVPB] IVPB bolus 0, then 3.375 gm 100 mL/hr, administered: 04/24/2016 11:12:00 PM Dilaudid [IVP] IVP 0.5 mg, administered: 04/24/2016 11:40:00 PM IV NS IV Fluids bolus 1000 mL wide open, administered: 04/25/2016 12:34:00 AM The following Medications were prescribed to the patient: None.
--- NOTE | 2016-04-25 01:20 | ED DISCHARGE INSTRUCTIONS ---
Patient: VIRGIL DAVILA General Instructions [facility] VisitID: [id number] [address] [place] [address] 61y, M Registration Date/Time: 04/24/2016 Cholecystitis. Acute biliary pancreatitis. (Electronically signed by Jadon Carr MD 04/25/2016 1:19)
--- NOTE | 2016-04-25 01:20 | ED MED RECONCILIATION SUMMARY ---
Patient: VIRGIL DAVILA Medication Reconciliation Report [facility] VisitID: [id number] [address] [place] [address] 61y, M Registration Date/Time: 04/24/2016 Weight: 88.4 kg Height/Length: 71 in. BMI: 27.2 ALLERGIES: No Known Drug Allergy The patient's Home Medications are listed below: THE FOLLOWING MEDICATIONS NEED TO BE RECONCILED: Lisinopril Oral Omeprazole Oral The source(s) of the original Home Medication information: Not obtained. The following Medications were given to the patient in the Emergency Department: IV NS IV Fluids bolus 500 mL wide open, administered: 04/24/2016 9:38:00 PM Zofran [IVP] IVP 4 mg, administered: 04/24/2016 9:38:00 PM Dilaudid [IVP] IVP 0.5 mg, administered: 04/24/2016 10:13:00 PM Dilaudid [IVP] IVP 0.5 mg, administered: 04/24/2016 10:37:00 PM IV NS IV Fluids bolus 1000 mL wide open, administered: 04/24/2016 11:11:00 PM Zosyn [IVPB] IVPB bolus 0, then 3.375 gm 100 mL/hr, administered: 04/24/2016 11:12:00 PM Dilaudid [IVP] IVP 0.5 mg, administered: 04/24/2016 11:40:00 PM IV NS IV Fluids bolus 1000 mL wide open, administered: 04/25/2016 12:34:00 AM The following Medications were prescribed to the patient: None.
[2016-04-25] MEDS ORDERED: LISINOPRIL/HYDR1 TA1 (14:38)
--- NOTE | 2016-04-25 18:39 | Progress Note ---
Subjective General Note Date: April 25, 2016 Admission Date: April 25, 2016 Hospital Day: 1 PCP: Dr. Llanos Status: Inpatient Advanced Directive: FULL CODE Room: 304 Brief History: The patient is a 61-year-old white male with a significant past medical history of hypertension who presented to [facility] emergency department on the day of admission secondary to complaints of abdominal pain. [facility] ER evaluation was consistent with gallstone pancreatitis. Secondary to the above, the patient was admitted by Collin Traore M.D. with surgical consultation by Flash Dowling M.D. for further evaluation and treatment. For other history present illness, past medical history, family history, social history, review of systems, and admission physical examination please see the patient's history and physical examination and ER visit note in the patient's medical record. Subjective: The patient states he has persistent abdominal pain but this seems better controlled with current pain medications. Patient requests: None Medications and Allergies Medications Current Medications Sig/Abraham Start time Last Medication Dose Route Stop Time Status Admin Piperacillin/ 50 ML Q6HR 04/25 1800 AC 04/25 Tazobactam/Dextrose IV 1833 Lisinopril 5 MG DAILY 04/25 1630 AC 04/25 PO 1638 Pantoprazole Sodium 40 MG BID 04/25 0900 AC 04/25 IV 0821 Hydromorphone HCl See Dose Q2H PRN 04/25 0845 AC 04/25 Insts (1) IV 1833 Insulin Human Lispro See Dose Q6HR / 0130 AC 04/25 Insts (2) SC 0130 Acetaminophen 650 MG Q6H PRN 04/25 0015 AC PO Morphine Sulfate 1 MG Q3H PRN 04/25 0015 AC 04/25 IV 0054 Ondansetron HCl 4 MG Q6H PRN / 0015 AC IV Sodium Chloride 1,000 ML ASDIRECTED 04/25 0015 AC 04/25 IV 1637 Dose Instructions: (1)Hydromorphone HCl: 0.5 - 1 MG (2)Insulin Human Lispro: LOW DOSE: ACCUCHECK AND SLIDING SCALE >>To change sliding scale DISCONTINUE this order and enter a NEW order. Thanks< Allergies Coded Allergies: NKA (04/25/16) Physical Exam Vital Signs / I&Os Vital Signs Date Time Temp Pulse Resp B/P Pulse O2 O2 Flow FiO2 Ox Delivery Rate 03/02 1815 98.2 70 14 133/70 91 Room Air 04/25 1414 97.0 68 16 126/66 96 Room Air 04/25 1003 99.0 63 18 138/75 97 Nasal 2.0 Cannula 04/25 0846 2.0 03 0619 98.1 61 18 150/80 100 Nasal 2.0 Cannula 04/25 0215 98.6 64 16 136/80 96 Nasal 2.0 Cannula 04/25 0059 98.6 64 16 163/84 98 Room Air 0.0 04/25 0047 Room Air General Appearance Alert, Oriented X3, Cooperative, No acute distress Lungs Clear to auscultation, Normal air movement Cardiovascular Regular rate and rhythm, Normal S1 and S2 Abdomen Normal bowel sounds, Soft, diffuse tenderness most significant epigastric region. No rebound Extremities No cyanosis, No clubbing Neurological Grossly normal Psych/Mental Status Mental status normal, Mood normal LAB Results Laboratory Tests 04/25 04/25 04/25 04/25 0800 0800 0752 0736 Chemistry Plasma Sodium (136 - 145 mmol/L) 139 Cancelled Plasma Potassium (3.5 - 5.1 mmol/L) 3.7 Cancelled Plasma Chloride (98 - 107 mmol/L) 104 Cancelled CO2 (Enzymatic) (21 - 32 mmol/L) 25 Cancelled BUN (7 - 18 mg/dL) 16 Cancelled Creatinine (0.6 - 1.3 mg/dL) 1.1 Cancelled Est GFR ( Amer) (mL/min) >60 Cancelled Est GFR (Non-Af Amer) (mL/min) >60 Cancelled Glucose (70 - 110 mg/dL) 123 Cancelled Plasma Calcium (8.5 - 10.1 mg/dL) 7.9 Cancelled Total Bilirubin (0.0 - 1.0 mg/dL) 1.0 Cancelled AST (15 - 37 U/L) 71 Cancelled ALT (12 - 78 U/L) 326 Cancelled Alkaline Phosphatase (46 - 116 U/L) 243 Cancelled Total Protein (6.4 - 8.2 g/dL) 6.1 Cancelled Albumin (3.3 - 5.0 g/dL) 3.2 Cancelled Amylase (25 - 115 U/L) 433 Cancelled Lipase (73 - 393 U/L) Cancelled 2427 Cancelled Hematology WBC (4.5 - 11.5 K/uL) Cancelled 15.1 Cancelled RBC (4.50 - 5.90 M/uL) Cancelled 4.29 Cancelled Hgb (13.5 - 17.5 gm/dL) Cancelled 12.9 Cancelled Hct (41.0 - 53.0 %) Cancelled 38.1 Cancelled MCV (80 - 100 fL) Cancelled 89 Cancelled MCH (26 - 34 pg) Cancelled 30 Cancelled RDW (11.6 - 14.8 %) Cancelled 13.9 Cancelled Neut % (Auto) (50 - 75 %) 82.7 Cancelled Lymph % (Auto) (25 - 40 %) 7.4 Cancelled [place] % (Auto) (3 - 14 %) 9.5 Cancelled Eos % (Auto) (0 - 4 %) 0 Baso % (Auto) (0 - 2 %) 0.4 Band Neutrophils % Cancelled Plt Count, EDTA (150 - 400 K/uL) Cancelled 161 Cancelled PUBS MCHC (31 - 37 g/dL) Cancelled 34 Cancelled 04/24 04/24 2210 2133 Chemistry Plasma Sodium (136 - 145 mmol/L) 136 Plasma Potassium (3.5 - 5.1 mmol/L) 3.6 Plasma Chloride (98 - 107 mmol/L) 99 CO2 (Enzymatic) (21 - 32 mmol/L) 28 BUN (7 - 18 mg/dL) 22 Creatinine (0.6 - 1.3 mg/dL) 1.5 Est GFR ( Amer) (mL/min) >60 Est GFR (Non-Af Amer) (mL/min) 50.24 Glucose (70 - 110 mg/dL) 171 Plasma Calcium (8.5 - 10.1 mg/dL) 9.1 Total Bilirubin (0.0 - 1.0 mg/dL) 1.6 AST (15 - 37 U/L) 156 ALT (12 - 78 U/L) 499 Alkaline Phosphatase (46 - 116 U/L) 344 Total Protein (6.4 - 8.2 g/dL) 7.7 Albumin (3.3 - 5.0 g/dL) 4.3 Amylase (25 - 115 U/L) 1777 Lipase (73 - 393 U/L) 96266 Hematology WBC (4.5 - 11.5 K/uL) 17.6 RBC (4.50 - 5.90 M/uL) 5.11 Hgb (13.5 - 17.5 gm/dL) 15.2 Hct (41.0 - 53.0 %) 45.8 MCV (80 - 100 fL) 90 MCH (26 - 34 pg) 30 RDW (11.6 - 14.8 %) 13.3 Neut % (Auto) (50 - 75 %) 92.6 Lymph % (Auto) (25 - 40 %) 4.5 [place] % (Auto) (3 - 14 %) 2.9 Eos % (Auto) (0 - 4 %) 0 Baso % (Auto) (0 - 2 %) 0 Plt Count, EDTA (150 - 400 K/uL) 183 PUBS MCHC (31 - 37 g/dL) 33 Urines Urine Color YELLOW Urine Appearance CLEAR Urine pH (5.0 - 8.0) 5.5 Ur Specific [place] (1.010 - 1.030) 1.025 Urine Protein (NEGATIVE) NEGATIVE Urine Ketones (NEGATIVE) NEGATIVE Urine Blood (NEGATIVE) NEGATIVE Urine Nitrite (NEGATIVE) NEGATIVE Urine Bilirubin (NEGATIVE) NEGATIVE Urine Urobilinogen (0.2 - 1.0 EU/dL) 0.2 Ur Leukocyte Esterase (NEGATIVE) NEGATIVE Urine RBC (0 - 1 rbc/hpf) 0-1 Urine WBC (0 - 1 wbc/hpf) NONE SEEN Ur Epithelial Cells (0 - 5 EPI/hpf) NONE SEEN Urine Bacteria (NONE SEEN) NONE SEEN Urine Glucose (NEGATIVE) NEGATIVE Urine Comment CULT NOT INDICATED Microbiology Date/Time Procedure - Status Source Growth 04/25 0112 MRSA Screen - RECD NASAL Assessment and Plan Problem List 1. Gallstone pancreatitis Status Acute Onset Date Unknown Plan -Patient presents with findings suggestive gallstone pancreatitis -IV fluid therapy -Antimicrobials-Zosyn 3.375 g IV every 6 hours -Pain medications -Monitor -Surgical consultation Dr. Dowling for cholecystectomy prior to discharge. 2. Hypertension Plan -Patient with history of hypertension -Lisinopril 5 mg by mouth daily -Monitor 3. Cholelithiasis Plan -Patient with findings of cholelithiasis/cholecystitis -Plan cholecystectomy with resolution of pancreatitis -Surgical consultation Dr. Dowling Current status: Fair, unstable Anticipated discharge date: Anticipated discharge 3-4 days Anticipated discharge placement: Home Patient care time: Time spent in chart review, patient interview, physical exam, CPOE, and care documentation: 25 minutes Visit to patient today: 1 Complexity of care: Moderate E&M Codes Rounding: Inpt-Moderate/[id number]
--- NOTE | 2016-04-25 20:53 | CONSULTATION REPORT ---
DATE OF CONSULTATION: 04/25/2016 REFERRING PHYSICIAN: James Bryant MD CHIEF COMPLAINT: 1. Epigastric abdominal pain HISTORY OF PRESENT ILLNESS: The patient is a 61-year-old man who presented with 4 month history of occasional vague abdominal pain. It became acutely worse yesterday and he presented to the emergency department for severe localized abdominal pain radiating through to the back. He had been started on omeprazole, which failed to fully relieve his pain. In the hospital, he was found to have evidence of gallstone pancreatitis with a markedly elevated lipase and amylase, as well as gallstones and a thick walled gallbladder. He was admitted for observation and intravenous fluid therapy. MEDICAL/SURGICAL HISTORY: Past medical history: Hypertension. MEDICATIONS: 1. Omeprazole 40 mg daily. 2. Lisinopril 10 mg daily. 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 He lives at home. He is . He does not smoke cigarettes. He rarely takes alcohol. FAMILY HISTORY: There is no family history of gallbladder problems or pancreatitis. REVIEW OF SYSTEMS: A multipoint review of systems was obtained on admission on 04/25/2016 and is negative except for the abdominal symptoms mentioned in the history of present illness. PHYSICAL EXAMINATION: GENERAL: He is alert and cooperative. He is oriented to time and place, does not appear to be in acute distress, but does report epigastric pain. VITAL SIGNS: His most recent vital signs: Temperature 97.0, pulse rate 68, respirations 16, blood pressure 126/66, O2 saturation 96% on room air. HEENT: His ears and nose demonstrate no gross external lesions. Eyes are equal. He is anicteric. NECK: Without palpable masses or thyromegaly. CHEST: Clear without wheeze or rales. HEART: Regular, without murmur or gallop. There are no bruits, no carotids. ABDOMEN: Examination reveals no evidence of distention. There is a small reducible umbilical hernia. He has epigastric tenderness to palpation and some localized guarding in the epigastrium, but none in the right subcostal region. There is no ascites. There is no hepatosplenomegaly. EXTREMITIES: Symmetric and appears to moves without restriction. LAB/IMAGING: Laboratory tests: His chemistry test this morning revealed normal electrolytes, his glucose was elevated at 123, calcium is low at 7.9. His liver enzymes are all mildly elevated. His amylase and lipase were 433 and 2427. His white count is 15.1, hemoglobin and hematocrit of 12.9 and 38.1. Urine is clear with specific gravity 1.025. His original admission laboratory tests last night showed an amylase of 1777 and lipase of 12,970. His bilirubin at that time was 1.6. His white count was also 7.6 on admission. His abdominal ultrasound showed cholelithiasis with findings suggestive of acute cholecystitis with a thick hyperemic wall and pericholecystic fluid, with the wall about 5-6 mm. IMPRESSION: 1. Gallstone pancreatitis. 2. Cholelithiasis with chronic and possibly acute cholecystitis. PLAN: The patient will be managed by the medicine service with bowel rest and IV hydration. It appears at this point his prodigious pancreatic enzyme elevations already starting to come down, but are still abnormal. We will observe him with serial examination and laboratory tests. I anticipate that if he continues on his present pathway his pancreatitis should resolve over the next couple of days. At that point, he will undergo laparoscopic cholecystectomy and be discharged once he recovers. The patient is also interested in getting his umbilical hernia fixed and this can be done at the same time.
[2016-04-26 03:13] VITALS: BP 141/76
[2016-04-26 07:15] VITALS: BP 133/72
--- NOTE | 2016-04-26 07:51 | Progress Note ---
Subjective General Note Date: April 26, 2016 Admission Date: April 25, 2016 Hospital Day: 2 PCP: Dr. Llanos Status: Inpatient Advanced Directive: FULL CODE Room: 304 Brief History: The patient is a 61-year-old white male with a significant past medical history of hypertension who presented to [facility] emergency department on the day of admission secondary to complaints of abdominal pain. [facility] ER evaluation was consistent with gallstone pancreatitis. Secondary to the above, the patient was admitted by Collin Traore M.D. with surgical consultation by Flash Dowling M.D. for further evaluation and treatment. For other history present illness, past medical history, family history, social history, review of systems, and admission physical examination please see the patient's history and physical examination and ER visit note in the patient's medical record. Subjective: The patient states overall he feels significantly better today. Pain improved by 50%. No nausea or vomiting. Patient requests: None Medications and Allergies Medications Current Medications Sig/Abraham Start time Last Medication Dose Route Stop Time Status Admin Piperacillin/ 50 ML Q6HR 04/25 1800 AC 04/26 Tazobactam/Dextrose IV 0505 Lisinopril 5 MG DAILY 04/25 1630 AC 04/25 PO 1638 Pantoprazole Sodium 40 MG BID 04/25 0900 AC 04/25 IV 2128 Hydromorphone HCl See Dose Q2H PRN 04/25 0845 AC 04/26 Insts (1) IV 0504 Insulin Human Lispro See Dose Q6HR / 0130 AC 04/25 Insts (2) SC 0130 Acetaminophen 650 MG Q6H PRN 04/25 0015 AC PO Morphine Sulfate 1 MG Q3H PRN 04/25 0015 AC 04/25 IV 0054 Ondansetron HCl 4 MG Q6H PRN / 0015 AC IV Sodium Chloride 1,000 ML ASDIRECTED 04/25 0015 AC 04/26 IV 0445 Dose Instructions: (1)Hydromorphone HCl: 0.5 - 1 MG (2)Insulin Human Lispro: LOW DOSE: ACCUCHECK AND SLIDING SCALE >>To change sliding scale DISCONTINUE this order and enter a NEW order. Thanks< Allergies Coded Allergies: NKA (04/25/16) Physical Exam Vital Signs / I&Os Vital Signs Date Time Temp Pulse Resp B/P Pulse O2 O2 Flow FiO2 Ox Delivery Rate 04/26 0715 99.3 67 17 133/72 97 Room Air 04/26 0313 98.8 65 17 141/76 98 Room Air 04/25 2209 99.3 74 18 117/61 98 Room Air 04/25 1815 98.2 70 14 133/70 91 Room Air 04/25 1414 97.0 68 16 126/66 96 Room Air 04/25 1003 99.0 63 18 138/75 97 Nasal 2.0 Cannula 04/25 0846 2.0 I&O 04/26 0000 04/25 1600 04/25 0800 Intake Total 1481 1613 842 Output Total 700 600 750 Balance 781 1013 92 General Appearance Alert, Oriented X3, Cooperative, No acute distress Lungs Clear to auscultation, Normal air movement Cardiovascular Regular rate and rhythm, Normal S1 and S2, No murmurs, gallops, rubs Abdomen Normal bowel sounds, Soft, epigastric tenderness-improved Extremities No cyanosis, No clubbing, No edema Neurological Grossly normal Psych/Mental Status Mental status normal, Mood normal LAB Results Laboratory Tests 04/26 04/26 04/25 04/25 04/25 0522 0500 0800 0800 0752 Chemistry Plasma Sodium (136 - 145 mmol/L) 139 Cancelled 139 Plasma Potassium (3.5 - 5.1 mmol/L) 3.6 Cancelled 3.7 Plasma Chloride (98 - 107 mmol/L) 104 Cancelled 104 CO2 (Enzymatic) (21 - 32 mmol/L) 26 Cancelled 25 BUN (7 - 18 mg/dL) 14 Cancelled 16 Creatinine (0.6 - 1.3 mg/dL) 1.1 Cancelled 1.1 Est GFR ( Amer) (mL/min) >60 Cancelled >60 Est GFR (Non-Af Amer) (mL/min) >60 Cancelled >60 Glucose (70 - 110 mg/dL) 91 Cancelled 123 Plasma Calcium (8.5 - 10.1 mg/dL) 7.8 Cancelled 7.9 Total Bilirubin (0.0 - 1.0 mg/dL) 1.4 Cancelled 1.0 AST (15 - 37 U/L) 31 Cancelled 71 ALT (12 - 78 U/L) 193 Cancelled 326 Alkaline Phosphatase (46 - 116 U/L) 180 Cancelled 243 Total Protein (6.4 - 8.2 g/dL) 5.8 Cancelled 6.1 Albumin (3.3 - 5.0 g/dL) 2.8 Cancelled 3.2 Amylase (25 - 115 U/L) 178 433 Lipase (73 - 393 U/L) Cancelled 2427 Hematology WBC (4.5 - 11.5 K/uL) 15.3 Cancelled Cancelled 15.1 RBC (4.50 - 5.90 M/uL) 3.84 Cancelled Cancelled 4.29 Hgb (13.5 - 17.5 gm/dL) 11.6 Cancelled Cancelled 12.9 Hct (41.0 - 53.0 %) 34.5 Cancelled Cancelled 38.1 MCV (80 - 100 fL) 90 Cancelled Cancelled 89 MCH (26 - 34 pg) 30 Cancelled Cancelled 30 RDW (11.6 - 14.8 %) 14.1 Cancelled Cancelled 13.9 Neut % (Auto) (50 - 75 %) 79 82.7 Lymph % (Auto) (25 - 40 %) 7 7.4 [place] % (Auto) (3 - 14 %) 10 9.5 Eos % (Auto) (0 - 4 %) 0 0 Baso % (Auto) (0 - 2 %) 0 0.4 Band Neutrophils % (0 - 8 %) 4 Metamyelocytes % (0 - 1 %) 0 Myelocytes (0 - 1 %) 0 Other Cell Type 0 Plt Count, EDTA (150 - 400 K/uL) 136 Cancelled Cancelled 161 PUBS MCHC (31 - 37 g/dL) 34 Cancelled Cancelled 34 Assessment and Plan Problem List 1. Gallstone pancreatitis Status Acute Onset Date Unknown Plan -Patient with findings of gallstone pancreatitis -Pancreatitis improved -IV fluids, pain medications -Surgical consultation-Dr. Dowling 2. Hypertension Plan -Blood pressure well controlled -Lisinopril 5 mg by mouth daily -BP this a.m. 125/75 mmHg -Low-salt diet when taking well orally 3. Cholelithiasis Plan -Patient with gallstone pancreatitis -Plan cholecystectomy when pancreatitis resolved -Dr. Dowling consulted Current status: Fair, improved Anticipated discharge date: Anticipated discharge in 3-4 days Anticipated discharge placement: Home Patient care time: Time spent in chart review, patient interview, physical exam, CPOE, and care documentation: 25 minutes Visit to patient today: 1 Complexity of care: Moderate E&M Codes Rounding: Inpt-Moderate/[id number]
[2016-04-26 11:40] VITALS: BP 136/74
[2016-04-26 14:20] VITALS: BP 133/70
[2016-04-26 18:44] VITALS: BP 138/85
[2016-04-26 22:14] VITALS: BP 142/84
[2016-04-27 02:20] VITALS: BP 129/69
[2016-04-27 07:19] VITALS: BP 123/67
--- NOTE | 2016-04-27 08:30 | Progress Note ---
Subjective General Note Date: April 27, 2016 Admission Date: April 25, 2016 Hospital Day: 3 PCP: Dr. Llanos Status: Inpatient Advanced Directive: FULL CODE Room: 304 Brief History: The patient is a 61-year-old white male with a significant past medical history of hypertension who presented to [facility] emergency department on the day of admission secondary to complaints of abdominal pain. [facility] ER evaluation was consistent with gallstone pancreatitis. Secondary to the above, the patient was admitted by Collin Traore M.D. with surgical consultation by Flash Dowling M.D. for further evaluation and treatment. For other history present illness, past medical history, family history, social history, review of systems, and admission physical examination please see the patient's history and physical examination and ER visit note in the patient's medical record. Subjective: Status improved today. Less abdominal pain. No nausea or vomiting. Plan laparoscopic cholecystectomy in a.m. Patient requests: None Medications and Allergies Medications Current Medications Sig/Abraham Start time Last Medication Dose Route Stop Time Status Admin Piperacillin/ 50 ML Q6HR 04/25 1800 AC 04/27 Tazobactam/Dextrose IV 0513 Lisinopril 5 MG DAILY 04/25 1630 AC 04/26 PO 0806 Pantoprazole Sodium 40 MG BID 04/25 0900 AC 04/26 IV 2032 Hydromorphone HCl See Dose Q2H PRN 04/25 0845 AC 04/27 Insts (1) IV 0635 Insulin Human Lispro See Dose Q6HR / 0130 AC 04/25 Insts (2) SC 0130 Acetaminophen 650 MG Q6H PRN 04/25 0015 AC PO Morphine Sulfate 1 MG Q3H PRN 04/25 0015 AC 04/25 IV 0054 Ondansetron HCl 4 MG Q6H PRN / 0015 AC IV Sodium Chloride 1,000 ML ASDIRECTED 04/25 0015 AC 04/27 IV 0631 Dose Instructions: (1)Hydromorphone HCl: 0.5 - 1 MG (2)Insulin Human Lispro: LOW DOSE: ACCUCHECK AND SLIDING SCALE >>To change sliding scale DISCONTINUE this order and enter a NEW order. Thanks< Allergies Coded Allergies: NKA (04/25/16) Physical Exam Vital Signs / I&Os Vital Signs Date Time Temp Pulse Resp B/P Pulse O2 O2 Flow FiO2 Ox Delivery Rate 04/27 0817 Room Air 04/27 0719 98.1 58 19 123/67 93 Nasal 2.0 Cannula 04/27 0220 98.2 70 16 129/69 95 Nasal 2.0 Cannula 04/26 2214 98.4 71 16 142/84 94 Nasal 2.0 Cannula 04/26 2035 2.0 04/26 1918 Nasal 2.0 Cannula 04/26 1844 99.9 68 20 138/85 93 Room Air 04/26 1420 97.9 70 14 133/70 94 Room Air 04/26 1140 98.1 72 18 136/74 99 Room Air 04/26 0836 Room Air I&O 04/27 0000 04/26 1600 04/26 0800 Intake Total 1840 1200 Output Total 569 987 8183 Balance 1190 -300 200 General Appearance Alert, Oriented X3, Cooperative, No acute distress Lungs Normal air movement, decreased breath sounds left base Cardiovascular Regular rate and rhythm, Normal S1 and S2, grade 1/6 systolic murmur Abdomen Normal bowel sounds, Soft, No tenderness Extremities No cyanosis, No clubbing, No edema Neurological Grossly normal Psych/Mental Status Mental status normal, Mood normal LAB Results Laboratory Tests 04/27 0510 Chemistry Plasma Sodium (136 - 145 mmol/L) 138 Plasma Potassium (3.5 - 5.1 mmol/L) 3.0 Plasma Chloride (98 - 107 mmol/L) 103 CO2 (Enzymatic) (21 - 32 mmol/L) 26 BUN (7 - 18 mg/dL) 12 Creatinine (0.6 - 1.3 mg/dL) 1.0 Est GFR ( Amer) (mL/min) >60 Est GFR (Non-Af Amer) (mL/min) >60 Glucose (70 - 110 mg/dL) 87 Plasma Calcium (8.5 - 10.1 mg/dL) 7.7 Total Bilirubin (0.0 - 1.0 mg/dL) 1.6 AST (15 - 37 U/L) 16 ALT (12 - 78 U/L) 127 Alkaline Phosphatase (46 - 116 U/L) 141 Total Protein (6.4 - 8.2 g/dL) 5.0 Albumin (3.3 - 5.0 g/dL) 2.5 Amylase (25 - 115 U/L) 65 Lipase (73 - 393 U/L) 188 Hematology WBC (4.5 - 11.5 K/uL) 10.7 RBC (4.50 - 5.90 M/uL) 3.60 Hgb (13.5 - 17.5 gm/dL) 10.8 Hct (41.0 - 53.0 %) 32.4 MCV (80 - 100 fL) 90 MCH (26 - 34 pg) 30 RDW (11.6 - 14.8 %) 13.7 Neut % (Auto) (50 - 75 %) 67 Lymph % (Auto) (25 - 40 %) 7 [place] % (Auto) (3 - 14 %) 5 Eos % (Auto) (0 - 4 %) 2 Baso % (Auto) (0 - 2 %) 0 Band Neutrophils % (0 - 8 %) 19 Metamyelocytes % (0 - 1 %) 0 Myelocytes (0 - 1 %) 0 Other Cell Type 0 Plt Count, EDTA (150 - 400 K/uL) 115 Hypochromic-Microcytic 1+ PUBS MCHC (31 - 37 g/dL) 33 Assessment and Plan Problem List 1. Gallstone pancreatitis Status Acute Onset Date Unknown Plan -Resolved -Planned surgery today per Dr. Dowling -Laparoscopic cholecystectomy -Monitor 2. Hypertension Plan -Blood pressure well controlled -BP this a.m. 123/67 mmHg -Low-salt diet when taking well orally -Continue present therapy 3. Cholelithiasis Plan -Findings of cholelithiasis/cholecystitis -Plan laparoscopic cholecystectomy today -Continue antimicrobials 4. Cholecystitis Status Acute Onset Date Unknown Plan -See above -Plan laparoscopic cholecystectomy today -Continue antimicrobials Current status: Fair, improved Anticipated discharge date: Anticipated discharge in 1-2 days Anticipated discharge placement: Home Patient care time: Time spent in chart review, patient interview, physical exam, CPOE, and care documentation: 25 minutes Visit to patient today: 1 Complexity of care: Moderate E&M Codes Rounding: Inpt-Moderate/[id number]
[2016-04-27 10:32] VITALS: BP 132/76
--- NOTE | 2016-04-27 11:45 | Progress Note ---
Subjective General Pt is comfortable and the abdominal pain has resolved. Physical Exam Vital Signs / I&Os Vital Signs Date Time Temp Pulse Resp B/P Pulse O2 O2 Flow FiO2 Ox Delivery Rate 04/27 1032 98.2 59 20 132/76 97 Room Air 2.0 04/27 0817 Room Air 04/27 0719 98.1 58 19 123/67 93 Nasal 2.0 Cannula 04/27 0220 98.2 70 16 129/69 95 Nasal 2.0 Cannula 04/26 2214 98.4 71 16 142/84 94 Nasal 2.0 Cannula 04/26 2035 2.0 04/26 1918 Nasal 2.0 Cannula 04/26 1844 99.9 68 20 138/85 93 Room Air 04/26 1420 97.9 70 14 133/70 94 Room Air I&O 04/26 0800 04/26 1600 04/27 0000 Intake Total 1200 1840 Output Total 1000 300 650 Balance 200 -300 1190 General Appearance Alert, Oriented X3, Cooperative HEENT Normal exam, Atraumatic, PERRLA, anicteric Abdomen Normal exam, Normal bowel sounds, Soft, No tenderness, amylase and lipase have normalized Assessment and Plan Problem List 1. Pancreatitis 2. Cholelithiasis Plan I recommended lap armando and grams for tommorow now that symptoms and labs have normalized. He can have a non fat diet today. I explained the nature of and the reason for this operation. I talked to him about the risks including infection, bleeding, scars, pain, damage to local structures, common duct stones, ERCP, post op pancreatitis and others. He would like to proceed with surgery as described.
[2016-04-27 14:44] VITALS: BP 115/55
[2016-04-27 18:12] VITALS: BP 125/70
[2016-04-27 22:21] VITALS: BP 128/74
[2016-04-28] VITALS (9 sets, daily range): BP systolic 132–181; BP diastolic 71–109
--- NOTE | 2016-04-28 09:24 | Progress Note ---
Subjective General Note Date: April 28, 2016 Admission Date: April 25, 2016 Hospital Day: 4 PCP: Dr. Llanos Status: Inpatient Advanced Directive: FULL CODE Room: 304 Brief History: The patient is a 61-year-old white male with a significant past medical history of hypertension who presented to [facility] emergency department on the day of admission secondary to complaints of abdominal pain. [facility] ER evaluation was consistent with gallstone pancreatitis. Secondary to the above, the patient was admitted by Collin Traore M.D. with surgical consultation by Flash Dowling M.D. for further evaluation and treatment. For other history present illness, past medical history, family history, social history, review of systems, and admission physical examination please see the patient's history and physical examination and ER visit note in the patient's medical record. Subjective: Doing well. Planned cholecystectomy today. No complaints. Patient requests: None Medications and Allergies Medications Current Medications Sig/Abraham Start time Last Medication Dose Route Stop Time Status Admin Potassium Chloride/ 100 ML 1000 / 1000 AC Water IV 04/28 1200 Potassium Chloride/ 100 ML 0800 / 0800 AC 04/28 Water IV 04/28 1000 0915 Piperacillin/ 50 ML Q6HR / 1800 AC / Tazobactam/Dextrose IV 0505 Lisinopril 5 MG DAILY 04/25 1630 AC / PO 0841 Pantoprazole Sodium 40 MG BID 04/25 0900 AC 04/27 IV 2116 Hydromorphone HCl See Dose Q2H PRN 04/25 0845 AC 04/28 Insts (1) IV 0030 Insulin Human Lispro See Dose Q6HR / 0130 AC 04/25 Insts (2) SC 0130 Acetaminophen 650 MG Q6H PRN 04/25 0015 AC PO Morphine Sulfate 1 MG Q3H PRN 04/25 0015 AC 04/25 IV 0054 Ondansetron HCl 4 MG Q6H PRN / 0015 AC IV Dose Instructions: (1)Hydromorphone HCl: 0.5 - 1 MG (2)Insulin Human Lispro: LOW DOSE: ACCUCHECK AND SLIDING SCALE >>To change sliding scale DISCONTINUE this order and enter a NEW order. Thanks< Allergies Coded Allergies: NKA (04/25/16) Physical Exam Vital Signs / I&Os Vital Signs Date Time Temp Pulse Resp B/P Pulse O2 O2 Flow FiO2 Ox Delivery Rate 04/28 0657 98.8 04/28 0643 100.2 102 21 152/77 97 Room Air 04/28 0240 98.4 49 16 132/71 93 Room Air 04/27 2221 98.8 59 17 128/74 94 Room Air 04/27 1812 99.1 58 20 125/70 93 Room Air 04/27 1444 98.1 56 20 115/55 92 Room Air 04/27 1032 98.2 59 20 132/76 97 Room Air 2.0 I&O 04/28 0000 04/27 1600 04/27 0800 Intake Total 3158 2122 Output Total 300 750 450 Balance 2858 -750 1672 General Appearance Alert, Oriented X3, Cooperative, No acute distress Lungs Clear to auscultation, decreased breath sounds left base Cardiovascular Regular rate and rhythm, Normal S1 and S2 Abdomen Normal bowel sounds, Soft, No tenderness, No guarding Extremities No cyanosis, No clubbing, No edema Neurological Grossly normal Psych/Mental Status Mental status normal, Mood normal LAB Results Laboratory Tests 04/28 414 Chemistry Plasma Sodium (136 - 145 mmol/L) 137 Plasma Potassium (3.5 - 5.1 mmol/L) 3.1 Plasma Chloride (98 - 107 mmol/L) 100 CO2 (Enzymatic) (21 - 32 mmol/L) 28 BUN (7 - 18 mg/dL) 10 Creatinine (0.6 - 1.3 mg/dL) 1.1 Est GFR ( Amer) (mL/min) >60 Est GFR (Non-Af Amer) (mL/min) >60 Glucose (70 - 110 mg/dL) 92 Plasma Calcium (8.5 - 10.1 mg/dL) 8.2 Plasma Magnesium (1.8 - 2.4 mg/dL) 1.8 Total Bilirubin (0.0 - 1.0 mg/dL) 1.4 AST (15 - 37 U/L) 17 ALT (12 - 78 U/L) 100 Alkaline Phosphatase (46 - 116 U/L) 141 Total Protein (6.4 - 8.2 g/dL) 6.1 Albumin (3.3 - 5.0 g/dL) 2.6 Hematology WBC (4.5 - 11.5 K/uL) 9.2 RBC (4.50 - 5.90 M/uL) 3.66 Hgb (13.5 - 17.5 gm/dL) 11.0 Hct (41.0 - 53.0 %) 33.1 MCV (80 - 100 fL) 90 MCH (26 - 34 pg) 30 RDW (11.6 - 14.8 %) 13.6 Neut % (Auto) (50 - 75 %) 68.7 Lymph % (Auto) (25 - 40 %) 16.3 [place] % (Auto) (3 - 14 %) 10.6 Eos % (Auto) (0 - 4 %) 4.0 Baso % (Auto) (0 - 2 %) 0.4 Plt Count, EDTA (150 - 400 K/uL) 138 PUBS MCHC (31 - 37 g/dL) 33 Assessment and Plan Problem List 1. Gallstone pancreatitis Status Acute Onset Date Unknown Plan -Resolved -Plan cholecystectomy today -Follow per surgery-Dr. Dowling -Monitor 2. Cholecystitis Status Acute Onset Date Unknown Plan -Stable -Patient remains on antimicrobials -We'll plan cholecystectomy today -Follow per surgery 3. Hypertension Plan -Mild elevation of BP, 152/77 mmHg -Continue present medical therapy -Low-salt diet postsurgery -Monitor 4. Cholelithiasis Plan -See above -Cholecystectomy today Current status: Fair, stable Anticipated discharge date: Anticipated discharge in a.m. Anticipated discharge placement: Home Patient care time: Time spent in chart review, patient interview, physical exam, CPOE, and care documentation: 25 minutes Visit to patient today: 1 Complexity of care: Moderate E&M Codes Rounding: Inpt-Moderate/91933
[2016-04-28] MEDS ORDERED: NORCO1 TA1 PO (11:08)
--- NOTE | 2016-04-28 11:10 | Provider's Discharge Care Plan ---
Problem, Goal, Plan Problem List 1. Gallstone pancreatitis 2. Umbilical hernia
--- NOTE | 2016-04-28 11:10 | Provider's Discharge Care Plan ---
Problem, Goal, Plan Problem List 1. Gallstone pancreatitis 2. Umbilical hernia
--- NOTE | 2016-04-28 12:46 | DIAGNOSTIC IMAGING REPORT ---
PROCEDURE: XR INTRAOPERATIVE LAP JUDIT INDICATION: SURGERY TECHNIQUE: Intraoperative fluoroscopy for an intraoperative cholangiogram following cholecystectomy. Total fluoroscopy time 16 seconds. Cumulative dose 6.4 mGy. COMPARISON: Ultrasound 04/24/2016 FINDINGS: Three intraoperative fluoroscopic spot images of the right upper quadrant of the abdomen demonstrate cannulation of the cystic duct stump and opacification of the intrahepatic and extrahepatic biliary tree. There are no filling defects. There is mild fusiform dilatation of the common hepatic duct raising possibility of type 1 choledochal cyst. There is normal passage of contrast into the duodenum. IMPRESSION: 1. Negative intraoperative cholangiogram. 2. 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
--- NOTE | 2016-04-28 15:30 | OPERATIVE REPORT ---
DATE OF SURGERY: 04/28/2016 SURGEON: Flash Dowling MD PREOPERATIVE DIAGNOSES: 1. Cholelithiasis with gallstone pancreatitis 2. Umbilical hernia POSTOPERATIVE DIAGNOSES: 1. Cholelithiasis with gallstone pancreatitis 2. Umbilical hernia PROCEDURES PERFORMED: 1. Laparoscopic cholecystectomy and cholangiography 2. Umbilical herniorrhaphy ANESTHESIA: General. INDICATIONS: The patient is a 61-year-old man who presented with gallstone pancreatitis. His pancreatitis has since resolved. The patient additionally noted an umbilical hernia that he desires to have repaired. SURGICAL TECHNIQUE: The patient was taken to the operating room, where a general anesthetic was administered and the patient prepped and draped in the usual sterile fashion. A local anesthetic of 0.5% Marcaine with epinephrine was used at each incision site. A curved incision was made on the lower edge of the umbilicus, and blunt dissection was used to isolate the base of the hernia. A Veress needle was inserted and used to insufflate the abdominal cavity. A 10 mm trocar was passed directly through the hernia and visualization was obtained. Three additional trocars were placed in the usual location. The gallbladder was elevated. There was a small amount of effusion alongside the liver, but the gallbladder itself was not acutely inflamed. The cystic duct was isolated at the neck of the gallbladder and a clip placed. A fluoroscopic cholangiogram was carried out, which revealed free flow of contrast into the duodenum and no evidence of filling defects. The cystic duct and artery were doubly clipped and divided and the gallbladder stripped from the gallbladder fossa using electrocautery. It was pulled to the upper midline trocar site where a Rosa was used to remove the larger stones. The empty gallbladder slipped out through the upper trocar site and was submitted for histopathology. Irrigation was used and the gallbladder bed inspected and found to be hemostatic. All free fluid was suctioned away and a small amount of additional Marcaine instilled. The umbilical hernia repair was carried out. The herniated umbilical contents were dissected off the back wall of the umbilical skin and reduced below the fascia. The fascia was dissected circumferentially at least a centimeter or more in all directions on both sides. A small disk of plain woven polypropylene mesh was placed in the retrofascial position. A suture of the 2-0 polypropylene was used to close the defect and simultaneously catch the mesh and pull it up into place behind the fascia. Once this was closed, the umbilical skin was inverted using a single 4-0 Vicryl stitch in the back of the umbilical skin to the fascia. The wound was closed with interrupted and running subcuticular 4-0 Vicryl suture. Steri-Strips and a sterile dressing were placed. The patient was placed in an abdominal pressure dressing, including a binder, and left the operating room in good condition. No intraoperative complications were encountered.
--- NOTE | 2016-05-16 15:27 | DISCHARGE SUMMARY ---
ADMIT DATE: 04/24/2016 DISCHARGE DATE: 04/28/2016 DISCHARGE DIAGNOSES: 1. Gallstone pancreatitis. 2. Cholelithiasis with chronic cholecystitis. 3. Umbilical hernia HOSPITAL COURSE: The patient is a 61-year-old man admitted to the hospitalist service because of severe epigastric abdominal pain. He had gallstone pancreatitis on admission with multiple gallstones and a thick walled gallbladder. He also had an umbilical hernia which has been bothering him for some time. His pancreatic enzymes were followed and normalized. He was taken to surgery on 04/28/2016 where he underwent laparoscopic cholecystectomy with cholangiography and repair of an umbilical hernia. DISCHARGE INSTRUCTIONS/MEDICATIONS: Postoperatively, he recovered without incident and was discharged home to continue his recovery.
== END 2016-04-28 18:00 | disposition home or self-care (01) | DRG 418 ==
LOC: ED SRH 21:18 → CC SRH 23:32 → TRANS SRH 23:32 → CC SRH 23:32 → TRANS SRH 23:32 → CC SRH 04-25 00:56
PROVIDERS: Surgery; ADMIT Internal Medicine
PROC: 0FT44ZZ Resection of Gallbladder, Percutaneous Endoscopic Approach (ICD-10-PCS; principal; 2016-04-28 09:30)
PROC: 0WUF0JZ Supplement Abdominal Wall with Synthetic Substitute, Open Approach (ICD-10-PCS; principal; 2016-04-28 09:30)
PROC: BF101ZZ Fluoroscopy of Bile Ducts using Low Osmolar Contrast (ICD-10-PCS; principal; 2016-04-28 09:30)
DX: K85.10 Biliary acute pancreatitis without necrosis or infection (principal); K80.10 Calculus of gallbladder with chronic cholecystitis without obstruction; K42.9 Umbilical hernia without obstruction or gangrene; I10 Essential (primary) hypertension